=== PATIENT | male | born 1985 | race African-American/Black ===

== ENCOUNTER 2023-09-03 12:46 | Emergency (ER) | payer OTHER, SELFPAY ==
--- NOTE | 2023-09-03 12:50 | ED_ITS ---
HPI - General Adult General Chief complaint: ETOH/Substance Use Stated complaint: nausea/ fatigue/ abd pain/ anxiety Time Seen by Provider: 09/03/23 15:54 Source: patient Mode of arrival: ambulatory Limitations: no limitations History of Present Illness HPI narrative: Patient is a 37 year old assigned male at with a history of alcohol abuse presenting to the emergency department today with intermittent abdominal pain, nausea, and vomiting. Patient states that over the last few weeks he has had intermittent abdominal pain, nausea, and vomiting. Patient states that his last drink was yesterday and he is interested in recovery help. Patient denies any dizziness, lightheadedness, fever, chills, blurry vision, double vision, loss of vision, chest pain, difficulty breathing, shortness of breath, back pain, night sweats, pain with urination, increased urinary frequency, increased urinary urgency, blood in his urine or stool, syncope or a near syncopal episode, recent trauma or falls, bowel incontinence, bladder incontinence, bowel retention, bladder retention, or any other complaints at this time. Onset (ago): week(s) Location: abdomen Severity: mild Relieving factors: none Exacerbating factors: none Associated symptoms: nausea/vomiting Treatments prior to arrival: none Related Data Previous Rx's Medication Instructions Recorded hydroxyzine HCl 10 mg tablet 10 mg PO TID PRN anxiety #14 tabs 09/03/23 ondansetron 4 mg disintegrating 4 mg PO Q8H 3 days #9 tabs 09/03/23 tablet Allergies Allergy/AdvReac Type Severity Reaction Status Date / Time No Known Allergies Allergy Verified 09/03/23 12:51 Review of Systems 2 Constitutional: Constitutional: Reports no additional constitutional complaints, Denies chills, Denies fever(s) and Denies night sweats Eyes: Eyes: Reports no additional eye complaints, Denies blurry vision, Denies change in vision, Denies diplopia, Denies eye discharge, Denies loss of vision and Denies eye pain ENT: Denies dizziness Cardiovascular: Cardiovascular: Reports no additional cardiovascular complaints, Denies chest pain, Denies lightheadedness, Denies Loss of Consciousness and Denies dyspnea Respiratory: Respiratory: Reports no additional respiratory complaints and Denies dyspnea Gastrointestinal: Gastrointestinal: Reports no additional gastrointestinal complaints, Reports abdominal pain, Denies melena, Denies hematochezia, Denies change in bowel habits, Denies change in stool character, Reports nausea and Reports vomiting Genitourinary: Genitourinary: Reports no additional male genitourinary complaints, Denies hematuria, Denies oliguria, Denies difficulty urinating, Denies dysuria, Denies urinary frequency, Denies urinary hesitancy, Denies urinary incontinence and Denies urinary urgency Musculoskeletal: Musculoskeletal: Reports no additional musculoskeletal complaints, Denies numbness and Denies tingling Neurologic: Denies dizziness, Denies loss of vision, Denies numbness and Denies tingling Psychiatric: Psychiatric: Reports no additional psychiatric complaints Endocrine: Endocrine: Reports no additional endocrine complaints Hematologic/Lymphatic: Hematologic/Lymphatic: Reports no additional hematologic/lymphatic complaints Allergic/Immunologic: Allergic/Immunologic: Reports no additional allergic/immunologic complaints PMFSH Past Medical History Attestation statement: The following information was validated with the patient. Source: old records reviewed and nursing notes reviewed Social History Social History Alcohol intake: current Alcohol intake frequency: 3 or more drinks per day Alcohol type: hard liquor Smoked in Last 30 Days: No Use of substances other than those prescribed or required for medical reasons: No Advance Directives: No Advance Directives Information Provided: Yes Physical Exam ED Vital Signs: Vital Signs - 24 hr 09/03/23 12:53 09/03/23 16:00 09/03/23 18:09 Temperature 98.0 F 98.5 F Pulse Rate 117 H 117 H 102 H Respiratory Rate 18 18 18 Blood Pressure 141/87 H 141/81 H 137/82 Pulse Oximetry 100 100 100 Oxygen Delivery Method Room Air Room Air Room Air BMI result Body Mass Index 26.6 Const General: cooperative, no acute distress, alert and awake Nutritional Appearance: well nourished Orientation/consciousness: patient oriented x3 Limitations: no limitations HENMT Head: Yes normal to inspection and Yes atraumatic Ears: hearing grossly normal bilaterally and external ears normal General nose exam: Normal external nose present, no nasal discharge noted and no epistaxis Face and sinus: Yes normal facial exam, No abrasion and No laceration Mouth: Normal oral and palatal mucosa present, no drooling and no muffled voice Eyes General: appearance normal, both eyes and all related structures Periorbital: periorbital findings normal Eyelids: Yes eyelids normal Conjunctivae: conjunctivae normal Pupils: Equal, round and reactive pupils present EOM: EOMs intact bilaterally Neck Neck: Yes normal visual inspection, Yes full ROM and Yes no lymphadenopathy Chest Chest palpation & inspection: normal inspection of the chest Resp Effort & Inspection: normal respiratory effort and able to speak in complete sentences GI Inspection: Yes normal to inspection Palpation (GI): Soft to palpation, not firm, nontender, no guarding and not rigid Neuro General: patient oriented x3 and moves all extremities Cranial nerves: Yes Equal, round and reactive pupils present Cognition (Neuro): normal cognition Motor exam (neuro): 5/5 motor strength present throughout Sensory Exam: Normal double simultaneous stimulation for sensation Coordination: [id number] test normal Extrem General: Yes normal to inspection, Yes full ROM and Yes capillary refill normal Psych Appearance: grossly normal Mental Status: mental status grossly normal Affect: normal affect Attitude: cooperative Thought process: Normal thought process present Thought content: Normal thought content present Insight: Good insight present (Psych) Course Course Course Narrative: RME:?37 yo male here for eval of intermittent abdominal pain, vomiting, fatigue x2 wks. Believes he is in etoh withdrawal. Reports improvement in symptoms with etoh consumption. Hx of etoh abuse, daily ETOH consumption, pint of vodka, last drank last night. No hx of etoh withdrawal or withdrawal seizures. Denies illicit substance use. seeking detox. PE: tremulous & anxious on exam. tachycardic. epigastric TTP. no rebound or guarding. Full HPI, ROS and PE to be performed by the primary ED provider. Medications Administered Discontinued Medications Generic Name Dose Route Start Last Admin Trade Name Isidroq PRN Reason Stop Dose Admin Sodium Chloride 1,000 mls @ 999 mls/hr 09/03/23 17:15 09/03/23 18:21 Ns IV 09/03/23 18:15 Infused .Q1H1M NATHEN Infusion Lorazepam 2 mg 09/03/23 15:58 09/03/23 16:09 Lorazepam 1 Mg Tablet PO 09/03/23 15:59 2 mg ONCE ONE Administration Ondansetron HCl 4 mg 09/03/23 15:58 09/03/23 16:09 Ondansetron Odt 4 Mg Tab.Rapdis TRANSLINGU 09/03/23 15:59 4 mg ONCE ONE Administration Pantoprazole Sodium 40 mg 09/03/23 17:04 09/03/23 17:16 Pantoprazole Sodium 40 Mg/10 Ml Vial IVPUSH 09/03/23 17:05 40 mg ONCE ONE Administration Medical Decision Making Medical Decision Making [facility] Narrative: Patient is a 37 year old assigned male at with a history of alcohol abuse presenting to the emergency department today with nausea, vomiting, and intermittent abdominal pain. Patient's physical exam was unremarkable. Patient's blood work was unremarkable. I explained my physical exam findings as well as all test results to the patient. I answered all questions asked by the patient. Patient received PO Ativan and IV fluids which he stated helped his symptoms significantly. Patient spoke to the recovery team however, they were planning to reassess tomorrow morning. When I spoke to the patient about staying until tomorrow to talk with recovery, he requested to go home instead. Patient is medically stable and not in concerning withdrawal. I stressed the importance of the patient taking his medication as prescribed. I stressed the importance of the patient following up with his primary care provider. I stressed the importance of the patient returning to the emergency department immediately if his symptoms were to worsen or if he were to develop any dizziness, shortness of breath, difficulty breathing, chest pain, blurry vision, loss of vision, nausea, vomiting, abdominal pain, fever, chills, back pain, or any other complaints. Patient verbalized agreement and understanding with this treatment plan and discharge. Differential Diagnosis Differential Diagnoses: The differential diagnosis associated with the presentation includes Abdominal pain Nausea Vomiting Alcohol use Alcohol abuse Alcohol withdrawal Admission/Observation Consideration of admission/observation: Escalation of care including admission/observation considered Patient would have been admitted to the hospital had his work up had any findings where hospital admission was appropriate and his clinical presentation warranted hospital admission. Lab Data [facility] Lab Attestation statement: I reviewed the patient's lab results. My interpretation of these results are in the [facility] Rationale portion of this note. 09/03/23 13:18 09/03/23 13:18 Labs: Lab Results 09/03/23 09/03/23 Range/Units 13:18 13:38 WBC 6.9 (4.8-10.8) X10*3/uL RBC 4.79 (4.60-5.80) X10*6/uL Hgb 15.6 (14.0-18.0) g/dl Hct 44.5 (42.0-52.0) % MCV 92.9 (80.0-98.0) fL MCH 32.6 (27.0-33.0) pg MCHC 35.1 (31.0-36.0) g/dl RDW 12.3 (11.0-16.0) % Plt Count 169 (160-400) X10*3/uL MPV 10.4 (9.4-12.4) fL Immature Gran % (Auto) 0.3 (0.0-0.4) % Neut % (Auto) 72.6 (45-73) % Lymph % (Auto) 19.6 L (20-40) % [place] % (Auto) 7.3 (2-11) % Eos % (Auto) 0.1 (0-4) % Baso % (Auto) 0.1 (0-2) % Lymph # (Auto) 1.4 (1.2-4.9) X10*3/uL [place] # (Auto) 0.5 (0.1-1.2) X10*3/uL Eos # (Auto) 0.0 (0.0-0.4) X10*3/uL Baso # (Auto) 0.0 (0.0-0.2) X10*3/uL Abs Immat Gran (auto) 0.02 (0.00-0.03) X10*3/uL Absolute Neuts (auto) 5.0 (2.0-8.3) x10*3/uL Absolute Nucleated RBC 0.000 (0.0-0.012) X10*3/uL Nucleated RBC % (auto) 0.0 (0.0-0.2) /100WBC Sodium 141 (135-145) mmol/L Potassium 3.3 (3.3-5.1) mmol/L Chloride 102 (96-108) mmol/L Carbon Dioxide 24 (22-29) mmol/L Anion Gap 18 (12-20) BUN 7 L (9-16) mg/dL Creatinine 0.92 (0.5-1.4) mg/dL Estim Creat Clear Calc 119.3 Estimated GFR > 60 Random Glucose 106 (60-115) mg/dL Calcium 9.7 (8.4-10.2) mg/dL Magnesium 1.9 (1.6-2.6) mg/dL Total Bilirubin 0.8 (0.0-1.0) mg/dL AST 100 H (5-37) U/L ALT 96 H (0-40) U/L Alkaline Phosphatase 62 (39-117) U/L Total Protein 8.7 H (6.5-8.0) g/dL Albumin 4.6 (3.5-5.0) g/dL Lipase 24 (8-78) U/L Ethyl Alcohol < 10 mg/dL COVID-19 (BRYAN) Negative (Negative) COVID-19 Clin Com See Note Influenza Type A (TANJA) Negative (Negative) Influenza Type B (TANJA) Negative (Negative) Influenza A & B Note See Note Discharge Plan Discharge Clinical Impression: Alcohol withdrawal syndrome Patient Disposition: Home, Self-Care Instructions: Abuse of Alcohol (DC) Additional Instructions: Follow up with your primary care provider. You've requested to see a GI specialist for liver function concerns - I've provided that contact information as well. Return to the emergency department immediately if your symptoms worsen or if you develop any dizziness, shortness of breath, difficulty breathing, chest pain, blurry vision, loss of vision, nausea, vomiting, abdominal pain, fever, chills, back pain, or any other complaints. [facility] ([facility]) at [facility]: [address] [place], [place] [id number] Walk in hours from 10am - 12pm Open from 10am - 12pm [facility] Crisis Services: [address] [place] [address] Walk in hours from 10am - 12pm Open 28/02 Behavioral [facility]: [address] [place] [id number] [address] [place] [id number] Hours: M-F 8am to 8pm Tuesday and Tuesday 9am to 5pm Prescriptions: New ondansetron 4 mg tablet,disintegrating 4 mg PO Q8H 3 Days Qty: 9 0RF hydroxyzine HCl 10 mg tablet 10 mg PO TID PRN (Reason: anxiety) Qty: 14 0RF Referrals: [facility] [Provider Group] (Call to establish and follow up with a GI specialist. ) [facility] Family Medicine [Provider Group] (Call to establish and follow up with a primary care provider. If you already have a primary care provider, please follow up with them.) [facility] [place] [Provider Group] (Call to establish and follow up with a primary care provider. If you already have a primary care provider, please follow up with them.) [facility] [Provider Group] (Call to establish and follow up with a primary care provider. If you already have a primary care provider, please follow up with them.) Stand Alone Forms: Work/School Release Interventions: ED Discharge Assessment Last Done: 09/03/23 18:13 Discharge Date/Time: 09/03/23 18:39 Print Language: Peruvian
[2023-09-03 12:53] VITALS: BP 141/87; PULSE 117; RESP 18; TEMP 36.7; O2SAT 100; BMI 26.6
[2023-09-03 13:05] VITALS: PULSE 103
[2023-09-03 13:25] LABS: MANUAL DIFF FLAG NO
[2023-09-03 13:26] LABS: Basophils Percent Auto 0.1 % (0-2); Eosinophils Percent Auto 0.1 % (0-4); Hematocrit 44.5 % (42.0-52.0); Hemoglobin 15.6 g/dl (14.0-18.0); Imm Gran Abs Auto 0.02 X10*3/uL (0.00-0.03); Imm Gran Pct Auto 0.3 % (0.0-0.4); Lymphocytes Absolute Auto 1.4 X10*3/uL (1.2-4.9); Lymphocytes Percent Auto 19.6 % (20-40); Mean Corpuscular HGB Conc 35.1 g/dl (31.0-36.0); Mean Corpuscular Hemoglobin 32.6 pg (27.0-33.0); Mean Corpuscular Volume 92.9 fL (80.0-98.0); Mean Platelet Volume 10.4 fL (9.4-12.4); Monocytes Absolute Auto 0.5 X10*3/uL (0.1-1.2); Monocytes Percent Auto 7.3 % (2-11); Neutrophils Percent Auto 72.6 % (45-73); Platelet Count 169 X10*3/uL (160-400); Red Blood Count 4.79 X10*6/uL (4.60-5.80); Red Cell Distribution Width 12.3 % (11.0-16.0); White Blood Count 6.9 X10*3/uL (4.8-10.8)
[2023-09-03 13:53] LABS: Ethanol < 10 mg/dL
[2023-09-03 13:55] LABS: Alanine Aminotransferase 96 U/L (0-40); Albumin Level 4.6 g/dL (3.5-5.0); Alkaline Phosphatase 62 U/L (39-117); Anion Gap 18 (12-20); Aspartate Amino Transferase 100 U/L (5-37); Bilirubin Total 0.8 mg/dL (0.0-1.0); Blood Urea Nitrogen 7 mg/dL (9-16); Calcium 9.7 mg/dL (8.4-10.2); Carbon Dioxide 24 mmol/L (22-29); Chloride 102 mmol/L (96-108); Creatinine Clr Calc Pharmacy 119.3; Estimated Glomerular Filt Rate > 60; Glucose Random 106 mg/dL (60-115); Lipase 24 U/L (8-78); Magnesium 1.9 mg/dL (1.6-2.6); Potassium 3.3 mmol/L (3.3-5.1); Sodium 141 mmol/L (135-145); Total Protein 8.7 g/dL (6.5-8.0)
[2023-09-03 14:03] LABS: COVID-19 Test Negative (Negative); IDNOW Serial# 152EDE1D; IDNOW Serial# 9DB6401D; Influenza A Negative (Negative); Influenza B2 Negative (Negative)
--- NOTE | 2023-09-03 15:51 | MHC.RECOVRN ---
Pt presented to ED with abdominal pain and N/V, intermittently for several weeks. Met with pt per request of ED provider, to explore detox. Pt reports that he drinks daily and has been doing that for more than 10 years. He currently drinks a pint a day. last drink was last night. He reports that lately when he stops drinking to go to work he starts to have different W/D sx and he never had that before. Most recent CIWA score was a 7. Education provided to pt. re: disease of AUD and detox and pt is interested in detox options. During my visit with pt he was pleasant and cooperative and did not appear uncomfortable or report discomfort. Pt is still awaiting some test results and has not yet been medically cleared. The plan is to wait until pt is medically cleared and to initiate bed search if that is what he still wishes. This plan was communicated to care team Fidelina sent to nurse Villanueva as provider not available.
[2023-09-03 16:00] VITALS: BP 141/81; PULSE 117; RESP 18; O2SAT 100
[2023-09-03] MEDS: LORazepam 1 MG TABLET 2 MG PO (16:09)
[2023-09-03] MEDS: Ondansetron ODT 4 MG TAB.RAPDIS TRANSLINGU (16:09)
[2023-09-03] MEDS: Pantoprazole Sodium 40 MG/10 ML VIAL IVPUSH (17:16)
[2023-09-03] MEDS: 0.9 % Sodium Chloride 1,000 ML 999 ML IV (17:16)
[2023-09-03 18:09] VITALS: BP 137/82; PULSE 102; RESP 18; TEMP 36.9; O2SAT 100
== END 2023-09-03 18:39 | disposition home or self-care (01) ==
PROVIDERS: Physician Assistant Medical; Emergency Provider Emergency Medicine
DX: F10.139 Alcohol abuse with withdrawal, unspecified (principal); Y90.0 Blood alcohol level of less than 20 mg/100 ml; Z11.52 Encounter for screening for COVID-19; R11.2 Nausea with vomiting, unspecified; R00.0 Tachycardia, unspecified; R10.13 Epigastric pain
CPT/HCPCS: 36415; 80053; 80307; 83690; 83735; 85025; 87502; 87635; 96361; 96374; 99285; C9113